=== PATIENT | female | born 1990 | race African-American/Black ===

== ENCOUNTER 2021-06-18 07:48 | Emergency (ER) | payer MEDICAID ==
[~2021-06-18] VITALS: Ht 165.1 cm; Wt 100.0 kg
--- NOTE | 2021-06-18 08:00 | NUR ---
PT GIVEN URINE CUP, UNABLE TO PROVIDE SAMPLE AT THIS TIME. CALL LIGHT INREACH. WILL CTM. TBS.
[2021-06-18 08:41] LABS: BASOPHILS % (AUTO) 1 % (0-1); EOSINOPHILS % (AUTO) 0 % (1-7); LYMPHOCYTES % (AUTO) 22 % (22-44); MEAN CORPUSCULAR HEMOGLOBIN 23.2 pg (27.0-34.8); MEAN CORPUSCULAR HGB CONC 31.1 g/dL (32.4-35.8); MONOCYTES % (AUTO) 15 % (2-9); NEUTROPHILS % (AUTO) 63 % (42-75); PLATELET COUNT 255 x10^3/uL (130-400); RED BLOOD COUNT 4.96 x10^6/uL (3.82-5.3)
[2021-06-18] MEDS ORDERED: HYDROmorphone 2 MG/ML, 1ML ONE (08:48)
[2021-06-18 08:52] LABS: ALBUMIN 3.1 g/dL (3.4-5.0); ANION GAP 8 mmol/L (5-15); CHLORIDE 105 mmol/L (98-107)
[2021-06-18 08:56] LABS: ALANINE AMINOTRANSFERASE 24 U/L (12-78); ALKALINE PHOSPHATASE 92 U/L (45-117); BILIRUBIN,TOTAL 0.2 mg/dL (0.2-1.0); CREATININE 0.63 mg/dL (0.55-1.02); TOTAL PROTEIN 7.7 g/dL (6.4-8.2)
[2021-06-18] MEDS ORDERED: HYDROmorphone 1 MG/ML, 1ML INJ IV ONE (09:00)
[2021-06-18 09:10] VITALS: BP 101/58
[2021-06-18] MEDS ORDERED: MAALOX/HYOSCYAMINE/LIDOCAINE 45 ML BTL PO ONE (11:00)
[2021-06-18] MEDS ORDERED: MAALOX/HYOSCYAMINE/LIDOCAINE 45 ML BTL ONE (11:03)
== END 2021-06-18 11:35 | disposition home or self-care (01) ==
LOC: ED 08:56
DX: R11.2 Nausea with vomiting, unspecified (principal); R10.13 Epigastric pain
CPT/HCPCS: 36415; 76700; 80053; 83690; 84703; 85025; 96374; 99284; J1170

== ENCOUNTER 2021-06-19 07:03 | Emergency (ER) | payer MEDICAID ==
[~2021-06-19] VITALS: Ht 165.1 cm; Wt 98.8 kg
--- NOTE | 2021-06-19 08:01 | NUR ---
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
--- NOTE | 2021-06-19 08:03 | NUR ---
PT AMBULATORY TO ROOM FROM [facility], CHANGED INTO GOWN, MONITORS IN PLACE. PT C/O EPIGASTRIC ABD PAIN. PT STATES SHE WAS SEEN HERE YESTERDAY FOR SAME AND THEY DID NOT "FIND ANYTHING" PT STATES SHE DOES NOT WANT TO GO HOME D/T PAIN. PT AXOX4. CALL LIGHT WITHIN REACH.
--- NOTE | 2021-06-19 08:26 | NUR ---
PA AT BS FOR EVAL
[2021-06-19] MEDS ORDERED: ONDANSETRON 2MG/ML, 2ML ONE (08:37)
[2021-06-19] MEDS ORDERED: MORPHINE SULFATE 4 MG/ML, 1ML ONE (08:38)
[2021-06-19] MEDS ORDERED: FAMOTIDINE 20 MG/2 ML ONE (08:38)
[2021-06-19] MEDS ORDERED: OMNIPAQUE 350 MG/ML, 100ML BOTTLE ONE (08:45)
[2021-06-19 08:49] VITALS: BP 102/63
--- NOTE | 2021-06-19 08:52 | NUR ---
PIV PLACED, LABS DRAWN, PT MEDICATED PER EMAR. NADN/VSS. CALL LIGHT WITHIN REACH. COMFORT MEASURES PROVIDED.
[2021-06-19] MEDS ORDERED: FAMOTIDINE 20 MG/2 ML IVPush ONE (09:00)
[2021-06-19] MEDS ORDERED: ONDANSETRON 2MG/ML, 2ML IVPush ONE (09:00)
[2021-06-19] MEDS ORDERED: SODIUM CHLORIDE 0.9% 1,000ML IVBOLUS ONE (09:00)
[2021-06-19] MEDS ORDERED: MORPHINE SULFATE 4 MG/ML, 1ML IVPush PRN (09:00)
--- NOTE | 2021-06-19 09:00 | NUR ---
PT TO CT
[2021-06-19 09:05] LABS: BASOPHILS % (AUTO) 0 % (0-1); EOSINOPHILS % (AUTO) 0 % (1-7); LYMPHOCYTES % (AUTO) 21 % (22-44); MEAN CORPUSCULAR HGB CONC 32.3 g/dL (32.4-35.8); MEAN PLATELET VOLUME 8.5 fL (7.4-10.4); MONOCYTES % (AUTO) 11 % (2-9); NEUTROPHILS % (AUTO) 68 % (42-75); PLATELET COUNT 268 x10^3/uL (130-400); RED BLOOD COUNT 4.96 x10^6/uL (3.82-5.3); RED CELL DISTRIBUTION WIDTH 17.7 % (9.6-15.2)
[2021-06-19 09:08] LABS: ALANINE AMINOTRANSFERASE 24 U/L (12-78); ALBUMIN 3.3 g/dL (3.4-5.0); ANION GAP 3 mmol/L (5-15); CALCIUM 8.5 mg/dL (8.5-10.1); CHLORIDE 103 mmol/L (98-107); CREATININE 0.81 mg/dL (0.55-1.02)
--- NOTE | 2021-06-19 09:13 | NUR ---
pt back from CT
[2021-06-19 09:16] LABS: ALKALINE PHOSPHATASE 99 U/L (45-117); BILIRUBIN,TOTAL 0.2 mg/dL (0.2-1.0); TOTAL PROTEIN 8.4 g/dL (6.4-8.2)
[2021-06-19 09:51] LABS: MICROSCOPIC INDICATED
--- NOTE | 2021-06-19 10:21 | NUR ---
PA AT BS, ANSWERING PT QUESTIONS ABOUT DC
--- NOTE | 2021-06-19 10:26 | NUR ---
Patient given discharge instructions and RX, they have confirmed that they understand the instructions. Patient ambulatory with steady gait.
== END 2021-06-19 10:28 | disposition home or self-care (01) ==
LOC: ED 09:34
DX: U07.1 COVID-19 (principal); J18.9 Pneumonia, unspecified organism
CPT/HCPCS: 36415; 74177; 80053; 81001; 83690; 85025; 96361; 96374; 96375; 99285; J2270; J2405; J7030; Q9967; U0003; U0005

== ENCOUNTER 2021-06-20 17:13 | Emergency (ER) | payer MEDICAID, OTHER ==
[~2021-06-20] VITALS: Ht 165.1 cm; Wt 92.0 kg
--- NOTE | 2021-06-20 19:14 | NUR ---
PT MOVED TO ROOM
--- NOTE | 2021-06-20 19:20 | NUR ---
PT C/O OF SOB, COUGH, BODYACHES, AND FEVER/CHILLS. ATTACHED TO MONITORS, VSS. NADN. PT UPSET ABOUT POSSIBLY GIVING COVID TO FRIENFDS AND FAMILY. TESTED + FOR COVID TODAY. PT STATES SHE HAS PNEUMONIA WELL. BED IN LOW, RAILS ENAGGED, CALL LIGHT ON LAP.
[2021-06-20 19:21] LABS: BASOPHILS % (AUTO) 1 % (0-1); EOSINOPHILS % (AUTO) 0 % (1-7); LYMPHOCYTES % (AUTO) 23 % (22-44); MEAN CORPUSCULAR HEMOGLOBIN 23.7 pg (27.0-34.8); MEAN CORPUSCULAR HGB CONC 32.3 g/dL (32.4-35.8); MEAN PLATELET VOLUME 8.3 fL (7.4-10.4); MONOCYTES % (AUTO) 7 % (2-9); NEUTROPHILS % (AUTO) 69 % (42-75); PLATELET COUNT 269 x10^3/uL (130-400); RED BLOOD COUNT 5.09 x10^6/uL (3.82-5.3); RED CELL DISTRIBUTION WIDTH 17.3 % (9.6-15.2)
--- NOTE | 2021-06-20 19:30 | NUR ---
RESP ISO IN PLACE. EKG DONE IN TRIAGE.
[2021-06-20 19:31] LABS: ALBUMIN 3.2 g/dL (3.4-5.0); ANION GAP 7 mmol/L (5-15); CALCIUM 8.6 mg/dL (8.5-10.1); CHLORIDE 100 mmol/L (98-107); CREATININE 0.74 mg/dL (0.55-1.02)
[2021-06-20 19:33] LABS: ALANINE AMINOTRANSFERASE 24 U/L (12-78); ALKALINE PHOSPHATASE 91 U/L (45-117); BILIRUBIN,TOTAL 0.3 mg/dL (0.2-1.0); TOTAL PROTEIN 8.3 g/dL (6.4-8.2)
[2021-06-20] MEDS ORDERED: KETOROLAC 30 MG/1 ML ONE (19:48)
[2021-06-20] MEDS ORDERED: ONDANSETRON 2MG/ML, 2ML ONE (19:48)
[2021-06-20] MEDS ORDERED: ONDANSETRON 2MG/ML, 2ML IVPush ONE (20:00)
[2021-06-20] MEDS ORDERED: KETOROLAC 30 MG/1 ML IVPush ONE (20:00)
[2021-06-20] MEDS ORDERED: SODIUM CHLORIDE 0.9% 1,000ML IVBOLUS ONE (20:00)
--- NOTE | 2021-06-20 21:02 | NUR ---
Patient is SLEEPING comfortably in bed. EYES CLOSED. Bed in lowest, rails engaged, call light on lap. Vital Signs within normal limits. WCTM. PT SNORING. NADN
[2021-06-20 21:42] VITALS: BP 108/72
--- NOTE | 2021-06-20 22:00 | NUR ---
Patient/Caregiver given discharge instructions and they have confirmed that they understand the instructions. Patient ambulatory with steady gait. NAD, all questions answered appropriately, denies additional needs at this time. No personal belongings left in room after discharge.
== END 2021-06-20 22:01 | disposition home or self-care (01) ==
LOC: ED 19:23
DX: R50.9 Fever, unspecified (principal); M79.10 Myalgia, unspecified site; R07.89 Other chest pain; R10.9 Unspecified abdominal pain; Z20.822 Contact with and (suspected) exposure to COVID-19
CPT/HCPCS: 36415; 71045; 80053; 83690; 84145; 84703; 85025; 93005; 96361; 96374; 96375; 99285; J1885; J2405; J7030